=== PATIENT | female | born 1985 | race African-American/Black ===

== ENCOUNTER 2018-10-02 05:18 | Day surgery (SDC) | payer MEDICAID ==
[~2018-10-02] VITALS: Ht 162.6 cm; Wt 101.2 kg
[~2018-10-02 05:18] MED LIST: ACET-2178 PO; MELA5TAB19 PO
[2018-10-02] MEDS ORDERED: LACTATED RINGERS 1,000 ML IV SCH (06:15)
[2018-10-02 06:29] LABS: CLARITY URINE CLOUDY (CLEAR); COLOR URINE YELLOW (YELLOW); KETONES URINE NEGATIVE (NEGATIVE); LEUKOCYTE ESTERASE URINE NEGATIVE (NEGATIVE); NITRITE URINE NEGATIVE (NEGATIVE); OCCULT BLOOD URINE NEGATIVE (NEGATIVE); PROTEIN URINE NEGATIVE (NEGATIVE); SPECIFIC GRAVITY URINE 1.034 (1.005-1.030); UROBILINOGEN URINE 0.2 E.U./dL (0.2-1.0)
[2018-10-02] MEDS ORDERED: SKIN ADHESIVE 0.7 GM EA TOP ONE (06:38)
[2018-10-02] MEDS ORDERED: BUPIVACAINE HCL/PF 0.5% (5MG/ML) 10ML ONE (06:39)
[2018-10-02 07:14] LABS: UCG SCREEN NEGATIVE
[2018-10-02] MEDS ORDERED: NEOSTIGMINE METHYLSULFATE 1MG/ML 10 ML VIAL ONE (07:26)
[2018-10-02] MEDS ORDERED: ROCURONIUM BROMIDE 10MG/ML VIAL 5ML IV ONE (07:26)
[2018-10-02] MEDS ORDERED: FENTANYL CITRATE/PF 50MCG/ML 2ML VIAL ONE (07:26)
[2018-10-02] MEDS ORDERED: PROPOFOL 200MG/20ML VIAL IV ONE (07:26)
[2018-10-02] MEDS ORDERED: MIDAZOLAM HCL 2 MG/2 ML VIAL ONE (07:26)
[2018-10-02] MEDS ORDERED: GLYCOPYRROLATE 0.2 MG/ML 2ML VIAL ONE (07:26)
[2018-10-02] MEDS ORDERED: SUCCINYLCHOLINE CHLORIDE 200MG/10ML IV ONE (07:27)
[2018-10-02] MEDS ORDERED: DEXAMETHASONE 4MG/ML 1ML VIAL ONE (08:20)
[2018-10-02] MEDS ORDERED: KETOROLAC 30MG/ML VIAL ONE (08:20)
[2018-10-02] MEDS ORDERED: CEFAZOLIN SODIUM 1000MG/VIAL ONE (08:20)
[2018-10-02] MEDS ORDERED: ONDANSETRON HCL 4MG/2ML INJ ONE (08:20)
[2018-10-02] MEDS ORDERED: ONDANSETRON HCL 4MG/2ML INJ IV PRN (09:15)
[2018-10-02] MEDS ORDERED: HYDROMORPHONE HCL/PF 2MG/ML CPJ IV PRN (09:15)
[2018-10-02] MEDS ORDERED: MEPERIDINE HCL/PF 25MG/ML CPJ IV PRN (09:15)
[2018-10-02 09:41] VITALS: BP 119/79
== END 2018-10-02 10:45 | disposition home or self-care (01) ==
LOC: OR 05:18
PROVIDERS: ATTEND Surgery
DX: D17.0 Benign lipomatous neoplasm of skin and subcutaneous tissue of head, face and neck (principal)
CPT/HCPCS: 21552; 81003; 81025; 88305; G0168; J0330; J0690; J1100; J1885; J2175; J2250; J2405; J2704; J2710; J3010; J3490

== ENCOUNTER 2018-10-04 12:32 | Emergency (ER) | payer MEDICAID, OTHER ==
[~2018-10-04] VITALS: Ht 162.6 cm; Wt 102.0 kg
[2018-10-04 14:06] LABS: EOSINOPHILS % 2.6 % (0.0-5.0); HEMATOCRIT. 38.7 % (36.0-48.0); HEMOGLOBIN. 12.6 g/dL (12.0-16.0); LYMPHOCYTES % 50.8 % (20.0-50.0); MEAN CORPUSCULAR HEMOGLOBIN 29.4 pg (28.0-32.0); MEAN CORPUSCULAR VOLUME 90.5 fL (81.0-99.0); MONOCYTES % 8.7 % (2.0-8.0); NEUTROPHILS % 36.9 % (40.0-76.0); PLATELET 301 x1000/uL (130-400); RED BLOOD CELL COUNT 4.27 mill/uL (4.2-5.4); RED CELL DISTRIBUTION WIDTH 13.8 % (11.6-14.6)
[2018-10-04 14:08] LABS: CHLORIDE 107 mEq/L (98-107)
[2018-10-04 15:49] VITALS: BP 138/94
== END 2018-10-04 15:52 | disposition home or self-care (01) ==
LOC: ER 12:32
DX: R05 Cough (principal); R07.89 Other chest pain; I49.9 Cardiac arrhythmia, unspecified; Z98.890 Other specified postprocedural states
CPT/HCPCS: 36415; 71045; 80053; 85025; 93005; 99284; Z7610